=== PATIENT | male | born 1985 | race Caucasian/White ===

== ENCOUNTER 2019-01-26 16:58 | Emergency (ER) | payer BC | END 2019-01-26 18:23 | disposition home or self-care (01) | LOC: E/R 18:23 → FTE 16:58 | DX: H10.33 Unspecified acute conjunctivitis, bilateral (principal) | CPT/HCPCS: 99283 ==

== ENCOUNTER 2019-02-01 12:33 | Emergency (ER) | payer BC | END 2019-02-01 12:45 | disposition home or self-care (01) | LOC: FTE 12:33 → E/R 12:45 | DX: H10.9 Unspecified conjunctivitis (principal) | CPT/HCPCS: 99283 ==